=== PATIENT | male | born 1990 | race Caucasian/White ===

== ENCOUNTER → 2018-03-02 | Outpatient (CLI) | payer OTHER ==
[~2018-03-02] MED LIST: OMNIPAQUE 350 MG/ML, 150 ML BOTTLE ONE
== END | disposition home or self-care (01) ==
LOC: EDSEX 14:47 → RAD 14:47
PROVIDERS: ATTEND Urology
DX: D40.10 Neoplasm of uncertain behavior of unspecified testis (principal); N50.89 Other specified disorders of the male genital organs
CPT/HCPCS: 71260; 74177; Q9967

== ENCOUNTER 2018-03-06 08:23 | Day surgery (SDC) | payer OTHER ==
[~2018-03-06] VITALS: Ht 195.6 cm; Wt 142.0 kg
[2018-03-06] MEDS ORDERED: MIDAZOLAM 1 MG/ML, 2ML ONE (09:28)
[2018-03-06] MEDS ORDERED: FENTANYL PF 250 MCG/5ML ONE (09:28)
[2018-03-06 09:44] LABS: MICROSCOPIC NOT IND
[2018-03-06] MEDS ORDERED: LACTATED RINGERS 1,000 ML IV SCH (09:48)
[2018-03-06 09:49] VITALS: BP 153/100
[2018-03-06] MEDS ORDERED: ALBU8.5H8 INH (09:56)
[2018-03-06 10:03] LABS: CULTURE INDICATED? NO
[2018-03-06] MEDS ORDERED: BUPIVACAINE/PF 0.5% ONE (10:20)
[2018-03-06] MEDS ORDERED: ACETAMINOPHEN 500 MG TABLET PO ONE (10:30)
[2018-03-06] MEDS ORDERED: GABAPENTIN 300 MG CAPSULE PO ONE (10:30)
[2018-03-06] MEDS ORDERED: OxyconTIN ER 20 MG TAB.ER PO ONE (10:30)
[2018-03-06] MEDS ORDERED: CEFAZOLIN 1,000 MG ONE (10:44)
[2018-03-06] MEDS ORDERED: PROPOFOL 10 MG/ML, 20ML ONE (10:44)
[2018-03-06] MEDS ORDERED: DEXAMETHASONE 4 MG/ML, 1ML ONE (10:44)
[2018-03-06] MEDS ORDERED: ONDANSETRON 2MG/ML, 2ML ONE (10:44)
[2018-03-06] MEDS ORDERED: HYDROmorphone 1 MG/ML, 1ML IV PRN (11:30)
[2018-03-06] MEDS ORDERED: LORazepam 2 MG/ML, 1ML IVPush PRN (11:30)
[2018-03-06] MEDS ORDERED: PROMETHAZINE 25 MG/ML, 1ML IV PRN (11:30)
[2018-03-06] MEDS ORDERED: MEPERIDINE/PF 25MG/0.5ML IVPush PRN (11:30)
[2018-03-06] MEDS ORDERED: hydrALAzine 20 MG/ML, 1ML IV PRN (11:30)
[2018-03-06] MEDS ORDERED: OXYcodone 5 MG/5 ML ORAL.SOL UDC PO PRN (11:30)
[2018-03-06] MEDS ORDERED: LABETALOL 5MG/ML, 20ML IV PRN (11:30)
[2018-03-06] MEDS ORDERED: FENTANYL PF 100 MCG/2ML IV PRN (11:30)
[2018-03-06] MEDS ORDERED: ALBUTEROL SULFATE 2.5 MG/3 ML NPPB PRN (11:30)
[2018-03-06] MEDS ORDERED: MEPERIDINE/PF 50 MG/ML ONE (11:55)
== END 2018-03-06 13:50 ==
LOC: EDSEX → OUT 08:23
PROVIDERS: ATTEND Urology
DX: C62.91 Malignant neoplasm of right testis, unspecified whether descended or undescended (principal); J45.909 Unspecified asthma, uncomplicated; Z72.89 Other problems related to lifestyle; Z88.0 Allergy status to penicillin; Z98.890 Other specified postprocedural states
CPT/HCPCS: 54530; 81003; 88305; 93005; J0690; J1100; J2175; J2250; J2405; J2704; J3010; J3490; J7120; 88309; 88341; 88342; G0461

== ENCOUNTER → 2018-03-15 | Outpatient (CLI) | payer OTHER ==
[~2018-03-15] MED LIST changes: +ALBU8.5H8 INH; -OMNIPAQUE 350 MG/ML, 150 ML BOTTLE ONE
== END | disposition home or self-care (01) ==
LOC: PETCFH 08:56
PROVIDERS: ATTEND Urology
DX: C62.90 Malignant neoplasm of unspecified testis, unspecified whether descended or undescended (principal)
CPT/HCPCS: 78306; A9503

== ENCOUNTER → 2018-04-05 | Outpatient (CLI) | payer OTHER | END | disposition home or self-care (01) | LOC: CARD 12:48 | PROVIDERS: ATTEND Internal Medicine Hematology & Oncology | DX: C62.90 Malignant neoplasm of unspecified testis, unspecified whether descended or undescended (principal) | CPT/HCPCS: 94060; 94726; 94729 ==

== ENCOUNTER 2018-04-16 10:24 | Day surgery (SDC) | payer OTHER ==
[~2018-04-16] VITALS: Ht 195.6 cm; Wt 137.9 kg
[2018-04-16] MEDS ORDERED: LIDOCAINE-MPF 2%, 2ML ONE (11:06)
[2018-04-16] MEDS ORDERED: SODIUM CHLORIDE 0.9% 1,000 ML IV SCH (11:14)
[2018-04-16 11:16] VITALS: BP 158/103
[2018-04-16] MEDS ORDERED: VANCOMYCIN PMX 1GM/200ML 200 ML IV ONE (12:30)
[2018-04-16] MEDS ORDERED: FENTANYL PF 100 MCG/2ML ONE (13:24)
[2018-04-16] MEDS ORDERED: NALOXONE 1 MG/ML, 2ML ONE (13:24)
[2018-04-16] MEDS ORDERED: FLUMAZENIL 0.1 MG/1 ML, 5ML ONE (13:24)
[2018-04-16] MEDS ORDERED: MIDAZOLAM 1 MG/ML, 5ML ONE (13:24)
== END 2018-04-16 15:00 | disposition home or self-care (01) ==
LOC: OUT 10:24
PROVIDERS: ATTEND Internal Medicine Hematology & Oncology
DX: Z45.2 Encounter for adjustment and management of vascular access device (principal); C62.90 Malignant neoplasm of unspecified testis, unspecified whether descended or undescended; J45.909 Unspecified asthma, uncomplicated; Z88.0 Allergy status to penicillin; Z98.890 Other specified postprocedural states
CPT/HCPCS: 36561; 76937; 77001; 99156; 99157; C1788; J1642; J2250; J3010; J3370; J3490; J7030; J2310

== ENCOUNTER → 2018-07-17 | Outpatient (CLI) | payer OTHER ==
[~2018-07-17] MED LIST changes: +OMNIPAQUE 350 MG/ML, 150 ML BOTTLE ONE
== END | disposition home or self-care (01) ==
LOC: CFH 11:42
PROVIDERS: ATTEND Internal Medicine Hematology & Oncology
DX: R59.0 Localized enlarged lymph nodes (principal); C62.11 Malignant neoplasm of descended right testis
CPT/HCPCS: 74177; Q9967

== ENCOUNTER → 2018-08-06 | Outpatient (CLI) | payer OTHER ==
[~2018-08-06] MED LIST changes: -OMNIPAQUE 350 MG/ML, 150 ML BOTTLE ONE
== END | disposition home or self-care (01) ==
LOC: PETCFH 09:34
PROVIDERS: ATTEND Internal Medicine Hematology & Oncology
DX: R19.09 Other intra-abdominal and pelvic swelling, mass and lump (principal); C62.11 Malignant neoplasm of descended right testis
CPT/HCPCS: 78815; A9552

== ENCOUNTER → 2019-01-23 | Outpatient (CLI) | payer OTHER ==
[~2019-01-23] MED LIST changes: +OMNIPAQUE 350 MG/ML, 100ML BOTTLE ONE
== END | disposition home or self-care (01) ==
LOC: CFH 09:08
PROVIDERS: ATTEND Internal Medicine Hematology & Oncology
DX: C62.11 Malignant neoplasm of descended right testis (principal); R59.1 Generalized enlarged lymph nodes
CPT/HCPCS: 71260; 74177; Q9967

== ENCOUNTER 2019-02-14 07:46 | Day surgery (SDC) | payer OTHER ==
[~2019-02-14] VITALS: Ht 195.6 cm; Wt 136.0 kg
[~2019-02-14 07:46] MED LIST changes: -OMNIPAQUE 350 MG/ML, 100ML BOTTLE ONE
[2019-02-14] MEDS ORDERED: SODIUM CHLORIDE 0.9% 1,000 ML IV SCH (08:06)
[2019-02-14 08:18] VITALS: BP 145/96
[2019-02-14] MEDS ORDERED: PLEASE ENTER HEIGHT AND WEIGHT MC SCH (08:30)
[2019-02-14] MEDS ORDERED: LIDOCAINE 1%, 20ML ONE (08:30)
[2019-02-14] MEDS ORDERED: FENTANYL PF 100 MCG/2ML ONE (09:28)
[2019-02-14] MEDS ORDERED: NALOXONE 1 MG/ML, 2ML ONE (09:28)
[2019-02-14] MEDS ORDERED: FLUMAZENIL 0.1 MG/1 ML, 5ML ONE (09:28)
[2019-02-14] MEDS ORDERED: MIDAZOLAM 1 MG/ML, 5ML ONE (09:28)
== END 2019-02-14 10:40 | disposition home or self-care (01) ==
LOC: OUT 07:46
PROVIDERS: ATTEND Internal Medicine Hematology & Oncology
DX: Z45.2 Encounter for adjustment and management of vascular access device (principal); C62.11 Malignant neoplasm of descended right testis; J45.909 Unspecified asthma, uncomplicated; Z88.0 Allergy status to penicillin
CPT/HCPCS: 36590; 77001; 99156; 99157; J2250; J3010; J2310

== ENCOUNTER → 2019-09-16 | Outpatient (CLI) | payer OTHER ==
[~2019-09-16] MED LIST changes: +OMNIPAQUE 350 MG/ML, 100ML BOTTLE ONE
== END | disposition home or self-care (01) ==
LOC: CFH 10:38
PROVIDERS: ATTEND Internal Medicine Hematology & Oncology
DX: C62.11 Malignant neoplasm of descended right testis (principal); N43.2 Other hydrocele; I86.1 Scrotal varices
CPT/HCPCS: 71260; 74177; 76870; 82565; 93975; Q9967